=== PATIENT | male | born 2000 | race Caucasian/White ===

== ENCOUNTER 2020-11-05 01:35 | Emergency (ER) | payer SELFPAY ==
[~2020-11-05] VITALS: Ht 180 cm; Wt 81.6 kg
[2020-11-05] MEDS ORDERED: KETOROLAC 30 MG/ML VIAL IVP STA (01:55)
[2020-11-05 02:11] LABS: BASOPHILS % (AUTO) 0 % (0-10); EOSINOPHILS # (AUTO) 0.2 10^3/uL (0.0-0.3); EOSINOPHILS % (AUTO) 2 % (0-10); HEMATOCRIT 47 % (40-54); LYMPHOCYTES # (AUTO) 2.8 10^3/uL (1.0-4.0); LYMPHOCYTES % (AUTO) 31 % (12-44); MEAN CORPUSCULAR HEMOGLOBIN 30 pg (25-34); MEAN CORPUSCULAR HGB CONC 34 g/dL (32-36); MEAN CORPUSCULAR VOLUME 88 fL (80-99); MEAN PLATELET VOLUME 10.8 fL (9.0-12.2); MONOCYTES # (AUTO) 0.6 10^3/uL (0.0-1.0); MONOCYTES % (AUTO) 7 % (0-12); NEUTROPHILS # (AUTO) 5.2 10^3/uL (1.8-7.8); NEUTROPHILS % (AUTO) 59 % (42-75); PLATELET COUNT 261 10^3/uL (130-400); WHITE BLOOD COUNT 8.8 10^3/uL (4.3-11.0)
[2020-11-05 02:26] LABS: ALBUMIN 4.3 GM/DL (3.2-4.5); CHLORIDE 106 MMOL/L (98-107); POTASSIUM 3.6 MMOL/L (3.6-5.0); SODIUM 145 MMOL/L (135-145)
[2020-11-05 02:28] LABS: CALCIUM 9.1 MG/DL (8.5-10.1)
[2020-11-05 02:29] LABS: GLUCOSE 94 MG/DL (70-105); TOTAL PROTEIN 7.4 GM/DL (6.4-8.2)
[2020-11-05 02:30] LABS: CARBON DIOXIDE 26 MMOL/L (21-32)
[2020-11-05 02:31] LABS: BILIRUBIN,TOTAL 0.4 MG/DL (0.1-1.0)
[2020-11-05 02:33] LABS: ALKALINE PHOSPHATASE 42 U/L (40-136); CREATININE SERUM 0.81 MG/DL (0.60-1.30); GFR ESTIMATED > 60
[2020-11-05 02:34] LABS: BUN/CREATININE RATIO 9
[2020-11-05 02:35] LABS: MAGNESIUM 2.4 MG/DL (1.6-2.4)
[2020-11-05 02:36] LABS: ALANINE AMINOTRANSFERASE 18 U/L (0-55)
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
[2020-11-05 02:42] LABS: ACETAMINOPHEN < 10 UG/ML (10-30)
[2020-11-05] MEDS ORDERED: LIDOCAINE 1% INJ 20 ML 20 ML VIAL INJ ONE (02:45)
--- NOTE | 2020-11-05 02:45 | NUR ---
IN ROOM TO OBTAIN A URINE SAMPLE, WHEN ASKED "DO YOU THINK YOU COULD GIVE ME A URINE SAMPLE" PATIENT RESPONDS WITH A DISRESPECTFUL TONE "WHY? ALL YOU ARE GOING TO FIND IN MY SYSTEM IS WEED, XANAX AND ALCOHOL, NO YOU CANT SEE ALCOHOL IN URINE." PATIENT PICKS UP PHONE AND IGNORES THIS RN. DR ROD NOW IN ROOM TO DO SUTURES. THIS RN LEFT ROOM.
[2020-11-05 03:10] VITALS: BP 167/85
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
== END 2020-11-05 03:25 | disposition home or self-care (01) ==
LOC: ER 01:38 → EDBD 01:38 → ER 03:25
DX: S61.210A Laceration without foreign body of right index finger without damage to nail, initial encounter (principal); S60.221A Contusion of right hand, initial encounter; F32.9 Major depressive disorder, single episode, unspecified; F17.210 Nicotine dependence, cigarettes, uncomplicated; Y04.0XXA Assault by unarmed brawl or fight, initial encounter
CPT/HCPCS: 12001; 73130; 80053; 83735; 85025; G0480 ×3; 36415; 80320; 80329